=== PATIENT | male | born 1995 | race Caucasian/White ===

== ENCOUNTER → 2019-07-26 | Emergency (ER) | payer OTHER ==
[~2019-07-26] VITALS: Ht 154.9 cm; Wt 88.5 kg
[~2019-07-26] MED LIST: CEFPROZIL500 MG PO; ORASEP SPRAY30 ML MM
== END | disposition home or self-care (01) ==
LOC: ER 23:14
DX: J31.2 Chronic pharyngitis (principal)

== ENCOUNTER 2020-06-13 08:30 | Outpatient (CLI) | payer OTHER | END 2020-06-13 08:37 | disposition HB | LOC: RAD 08:30 | DX: I10 Essential (primary) hypertension (principal) ==

== ENCOUNTER 2020-07-27 22:34 | Emergency (ER) | payer OTHER ==
[~2020-07-27] VITALS: Ht 180.3 cm; Wt 97.1 kg
[2020-07-28] MEDS ORDERED: ORPHENADRINE C100 MG PO (01:25)
[2020-07-28] MEDS ORDERED: NAPROXEN375 MG PO (01:25)
== END 2020-07-28 02:52 | disposition home or self-care (01) ==
LOC: ER 22:34
DX: M54.2 Cervicalgia (principal); M25.511 Pain in right shoulder

== ENCOUNTER 2020-08-14 20:51 | Emergency (ER) | payer OTHER ==
[~2020-08-14] VITALS: Ht 180.3 cm; Wt 95.3 kg
[~2020-08-14 20:51] MED LIST changes: +NAPROXEN375 MG PO; +ORPHENADRINE C100 MG PO
== END 2020-08-14 21:38 | disposition home or self-care (01) ==
LOC: ER 20:51
DX: J02.8 Acute pharyngitis due to other specified organisms (principal)

== ENCOUNTER 2021-06-06 08:00 | Outpatient (CLI) | payer OTHER | END 2021-06-06 08:30 | disposition home or self-care (01) | LOC: PPH VACUNA 08:00 | PROVIDERS: ATTEND Emergency Medicine Pediatric Emergency Medicine | DX: Z23 Encounter for immunization (principal) ==

== ENCOUNTER 2021-07-19 21:25 | Emergency (ER) | payer OTHER ==
[~2021-07-19] VITALS: Ht 177.8 cm; Wt 97.5 kg
== END 2021-07-19 23:14 | disposition home or self-care (01) ==
LOC: ER 21:25
DX: U07.1 COVID-19 (principal); B34.9 Viral infection, unspecified

== ENCOUNTER → 2021-11-30 | Emergency (ER) | payer OTHER ==
[~2021-11-30] VITALS: Ht 177.8 cm; Wt 97.5 kg
[~2021-11-30] MED LIST changes: +PHENAGIL TABLE1 EACH PO
== END | disposition home or self-care (01) ==
LOC: ER 00:27
DX: J06.9 Acute upper respiratory infection, unspecified (principal); Z20.822 Contact with and (suspected) exposure to COVID-19